=== PATIENT | male | born 2000 | race American Indian/Alaskan Native ===

== ENCOUNTER 2021-11-28 08:57 | Emergency (ER) | payer SELFPAY ==
[2021-11-28 09:04] VITALS: BP 135/61
--- NOTE | 2021-11-28 09:06 | Emergency Department Report ---
Chief Complaint: Weakness Stated Complaint: WEKNESS Time Seen by Provider: 11/28/21 09:02 - HPI History of Present Illness: Has a pending covid from urgent care- needs work note so he came to ER no cough no fever ambulatory non ill appearing taking po - ROS Review of Systems: none - Exam Vital Signs: Vital Signs 11/28/21 09:03 Temperature 98.5 F Pulse Rate 68 Respiratory 20 Rate Blood Pressure 135/61 O2 Sat by Pulse 97 Oximetry Physical Exam: alert/oriented nad lungs cta s1s2 MSE screening note: Focused history and physical exam performed. Due to findings the following was ordered: no life threat - here for work note MSE from ER to PCP verbalizes understanding of dc plan of care Patient discussed with doctor:: DOMINIQUE PHIPPS ED Disposition for MSE Clinical Impression: Weakness Disposition: 01 HOME / SELF CARE / HOMELESS Condition: Stable Additional Instructions: follow up with your covid test- if neg- go to work on Sat if positive- see pcp-- referral below Referrals: HENRIQUE TORREZ MD [Staff Physician] - 3-5 Days Forms: Work/School Release Form(ED) Time of Disposition: 09:05
== END 2021-11-28 09:19 | disposition home or self-care (01) ==
LOC: ED 08:57
DX: R53.1 Weakness (principal)
CPT/HCPCS: 99282